=== PATIENT | female | born 1945 | race Caucasian/White ===

== ENCOUNTER 2019-05-17 | Emergency (ER) | payer MEDICARE ==
[~2019-05-17] MED LIST: PROTONIX40 M2 PO; TRAMADOL HCL50 MG PO
[2019-05-17 21:45] LABS: HEMATOCRIT 49.3 % (37.0-47.0); HEMOGLOBIN 16.3 g/dl (12.0-16.0); IMMATURE GRANULOCYTES 0.2 % (0.0-5.0); MEAN CELL VOLUME 91.1 fL CALC (80.0-100.0); MEAN CORPUSCULAR HGB 30.1 pG CALC (26.0-32.0); MEAN CORPUSCULAR HGB CONC 33.1 g/L CALC (32.0-36.0); NEUT# 10.3 thou/uL (2.00-7.15); RED BLOOD COUNT 5.41 mill/uL (4.20-5.60); RED CELL DISTRI WIDTH 15.1 % (11.5-15.5)
[2019-05-17 22:01] LABS: ANION GAP 16 (6-22 (CALC)); BILIRUBIN, TOTAL 0.7 mg/dL (0.0-1.4); BUN 20 mg/dL (8-23); BUN/CREATININE RATIO 39 (12-20 (CALC)); CARBON DIOXIDE 24 mmol/l (22-30); CHLORIDE 99 mmol/l (95-108); CREATININE 0.5 mg/dL (0.5-1.0); GFR > 60 ML/MIN (>=60 (CALC)); GFR FOR AFR.AMER. > 60 ML/MIN (>=60 (CALC)); SODIUM 135 mmol/l (137-146)
[2019-05-17 22:04] LABS: ACT PARTIAL THROMBO TIME 27.2 SECONDS (20.0-32.5)
[2019-05-17 22:12] LABS: ALBUMIN 4.8 g/dL (3.2-5.0); ALKALINE PHOSPHATASE 95 u/l (38-126); SGOT/AST 48 u/l (9-36); TOTAL PROTEIN 9.1 g/dL (6.3-8.2)
[2019-05-18 01:54] LABS: URINE BILIRUBIN - DIPSTICK NEGATIVE (NEGATIVE); URINE BLOOD DIPSTICK TRACE-LYSED (NEGATIVE); URINE COLOR YELLOW; URINE GLUCOSE - DIPSTICK NEGATIVE (NEGATIVE); URINE KETONE 15 mg/dL (NEGATIVE); URINE PROTEIN - DIPSTICK 30 mg/dL (NEG-TRACE); URINE SPECIFIC GRAVITY 1.025; URINE UROBILINOGEN - DIPSTICK 0.2 E.U./dL (0.2)
[2019-05-18 02:04] LABS: URINE LEUK ESTERASE SMALL (NEGATIVE)
[2019-05-18 02:05] LABS: URINE NITRITE - DIPSTICK NEGATIVE (Negative)
[2019-05-18 02:06] LABS: URINE BACTERIA MODERATE hpf; URINE EPITHELIAL CELLS FEW EPI/hpf (0-FEW)
== END 2019-05-18 01:19 | disposition short-term general hospital (02) ==
PROVIDERS: Emergency Medicine
DX: I21.4 Non-ST elevation (NSTEMI) myocardial infarction (principal); R51 Headache; F17.210 Nicotine dependence, cigarettes, uncomplicated; R82.71 Bacteriuria
CPT/HCPCS: J1650

== ENCOUNTER 2020-07-02 12:59 | Observation (INO) | payer MEDICARE ==
[~2020-07-02] VITALS: Ht 160 cm; Wt 53.0 kg
--- NOTE | 2020-07-02 12:59 | NUR ---
TO ROOM VIA EMS IN STABLE CONDITION
[2020-07-02] MEDS ORDERED: ASPIRIN325 MG PO (13:19)
[2020-07-02] MEDS ORDERED: CLOPIDOGREL75 MG PO (13:20)
[2020-07-02] MEDS ORDERED: [UNRECOGNIZED DRUG - CODE] PO (13:21)
[2020-07-02] MEDS ORDERED: MEMANTINE HYDRO10 MG PO (13:23)
[2020-07-02] MEDS ORDERED: ROSUVASTATIN CA40 MG PO (13:25)
[2020-07-02] MEDS ORDERED: DOK100 MG PO (13:26)
--- NOTE | 2020-07-02 13:30 | NUR ---
EMS STATES THAT PT WAS AT AN [facility] SITTING ON A SHOWER CHAIR IN THE SHOWER WHEN SHE FELL BACK WHEN THE CHAIR BROKE. PT HAS A HEMATOMA ON THE BACK OF THE HEAD MEASURING 4-6 CM. PT AOX4. PT HAS EARLY DEMENTIA AND CANNOT RECALL MANY THINGS. SHE IS ON BLOOD THINNERS. PT DENIES ANY PAIN AT THIS TIME. PLAN OF CARE DISCUSSED TO DAUGHTER AND PT.
[2020-07-02 13:36] LABS: IMMATURE GRANULOCYTES 0.8 % (0.0-5.0); MEAN CORPUSCULAR HGB 30.8 pG CALC (26.0-32.0); MEAN CORPUSCULAR HGB CONC 30.9 g/dL CAL (32.0-36.0); NEUT# 6.33 thou/uL (2.00-7.15); RED BLOOD COUNT 4.32 mill/uL (4.20-5.60); RED CELL DISTRI WIDTH 12.7 % (11.5-15.5)
[2020-07-02 13:37] LABS: HEMATOCRIT 43.1 % (37.0-47.0); HEMOGLOBIN 13.3 g/dl (12.0-16.0); MEAN CELL VOLUME 99.8 fL CALC (80.0-100.0)
[2020-07-02 13:53] LABS: ALBUMIN 4.2 g/dL (3.2-5.0); ALKALINE PHOSPHATASE 81 u/l (38-126); ANION GAP 10 (6-22 (CALC)); BILIRUBIN, TOTAL 0.5 mg/dL (0.0-1.4); BUN 19 mg/dL (8-23); BUN/CREATININE RATIO 24 (12-20 (CALC)); CARBON DIOXIDE 28 mmol/l (22-30); CHLORIDE 105 mmol/l (95-108); CREATININE 0.8 mg/dL (0.5-1.0); GFR > 60 ML/MIN (>=60 (CALC)); GFR FOR AFR.AMER. > 60 ML/MIN (>=60 (CALC)); POTASSIUM 4.4 mmol/l (3.5-5.1); SGOT/AST 69 u/l (9-36); SODIUM 138 mmol/l (137-146); TOTAL PROTEIN 7.5 g/dL (6.3-8.2)
[2020-07-02 13:56] LABS: ACT PARTIAL THROMBO TIME 25.2 SECONDS (20.0-32.5); PROTHROMBIN TIME 10.2 SECONDS (9.0-12.5)
--- NOTE | 2020-07-02 14:41 | NUR ---
SBAR PRINTED TO FLOOR
[2020-07-02 14:56] LABS: URINE BILIRUBIN - DIPSTICK NEGATIVE (NEGATIVE); URINE BLOOD DIPSTICK NEGATIVE (NEGATIVE); URINE COLOR YELLOW; URINE GLUCOSE - DIPSTICK NEGATIVE (NEGATIVE); URINE KETONE NEGATIVE (NEGATIVE); URINE LEUK ESTERASE TRACE (NEGATIVE); URINE PH 5.5 (4.5-8.0); URINE PROTEIN - DIPSTICK NEGATIVE (NEG-TRACE); URINE UROBILINOGEN - DIPSTICK 0.2 E.U./dL (0.2)
[2020-07-02 15:00] LABS: URINE NITRITE - DIPSTICK NEGATIVE (Negative)
--- NOTE | 2020-07-02 15:26 | NUR ---
GAVE REPORT TO STEPHENIE
--- NOTE | 2020-07-02 15:33 | NUR ---
Admission Note Report Given to: SBAR PRINTED TO FLOOR Transported by: Wheelchair X Stretcher Transported with: X Nurse Transporter X Patent IV O2 X Senior Enlisted Advisor Location: ICU X MS2
[2020-07-02 15:40] VITALS: BP 154/100
--- NOTE | 2020-07-02 15:40 | NUR ---
PATIENT RECEIVED FROM ED AT THIS TIME. PATIENT ALERT AND ORIENTED TO NAME, , PLACE. PATIENT ORIENTED TO ROOM AND SURROUNDINGS. PATIENT VERBALIZES UNDERSTANDING AT THIS TIME. AUTOMOTIVE MECHANICAL ENGINEER DONE (SEE INTERVENTIONS). PATIENT PUPILS PERRL AND REACTIVE TO LIGHT BRISKLY< 3 S3C. PATIENTS GRASPS ARE EQUAL AND WITHOUT DEFICITS. PATIENT STATED SHE HAD A STROKE IN 2020 AND NO RESISUAL EFFECTS NOTED AT THIS TIME. PATIENT LUNG BRANTLEY ARE CLEAR AT THIS TIME. BOWEL SOUNDS PRESENT IN ALL FOUR QUADRANTS AND PATIENT STATED SHE HAD A BOWEL MOVEMENT ON 07/01/20 AND IT WAS "NORMAL". PATIENT DOES PRESENT WITH HEMATOMA TO THE CROWN OF HER HEAD AND BRUISING NOTED WITHOUT OPENING. PATIENT HAS ICE PACK TO HEAD AT THIS TIME. NO EDEMA NOTED ON ANY EXTREMITIES AND RESPIRATIONS EASY AND UNLABORED. CALL LIGHT AND PERSONAL ITEMS WITHIN REACH SIDERAILS ARE UP X2 AND TELE MONITOR IN PLACE AND BEING WATCHED BY ED.
--- NOTE | 2020-07-02 19:10 | NUR ---
PT ASSESSED AT THIS. PT REPORTS FEELING OKAY AT THIS TIME. SHE IS SITTING UP WATCHING TV. NO S/O DISTRESS NOTED AT THIS TIME. CALL LIGHT W/IN REACH AND REORIENTED TO PT, VERBALIZED UNDERSTANDING. BED ALARM IS ON.
[2020-07-02 19:45] VITALS: BP 110/68
[2020-07-03] VITALS: BP 102/63
--- NOTE | 2020-07-03 00:58 | NUR ---
PT IS SLEEPING AT THIS TIME WITH LIGHTS LOW AND TV ON. NO S/O DISTRESS NOTED.
[2020-07-03 04:00] VITALS: BP 113/68
--- NOTE | 2020-07-03 04:36 | NUR ---
PT AWAKE, BUT CONFUSED TO TIME OF DAY. V/S ASSESSED. DENIES PAIN, BUT REPORTS THE BACK OF HER HEAD IS TENDER TO THE TOUCH. NEURO'S ARE INTACT.
[2020-07-03 07:05] VITALS: BP 110/68
--- NOTE | 2020-07-03 07:05 | NUR ---
PATIENT RESTING IN BED AT THIS TIME. ALERT AND ORIENTED X 2. WALL WORKER DONE AT THIS TIME. NEURO CHECKS DONE AND GRASPS ARE STRONG AND EQUAL, PUPILS REACTIVE BRISK AND PERRL. CROWN OF HEAD REMAINS BRUISED AND AREA SLIGHTLY RAISED. PATIENT DENIES ANY PAIN AT THIS TIME. SIDERAILS ARE UP CALL LIGHT AND PERSONAL ITEMS ARE WITHIN REACH.
[2020-07-03 10:51] VITALS: BP 79/50
--- NOTE | 2020-07-03 12:00 | NUR ---
PATIENT BEING D/C AT THIS TIME. PATIENT DENEIS ANY NEEDS SIDERAILS ARE UP NEURO CHECKS REMAIN UNCHANGED AT THIS TIME. CALL LIGHT IS WITHIN REACH.
[2020-07-03 12:38] LABS: HEMATOCRIT 40.9 % (37.0-47.0); HEMOGLOBIN 12.7 g/dl (12.0-16.0)
--- NOTE | 2020-07-03 13:53 | NUR ---
PATIENT D/C AT THIS TIME PATIENT DAUGHTER AND PATIENT VERBALIZES UNDERSTANDING OF D/C INSTRUCTIONS AT THIS TIME. IV REMOVED AND TELE REMOVED AND ED NOTIFIED OF TELE REMOVAL.
--- NOTE | 2020-07-03 14:11 | NUR ---
Discharge instructions given. Patient verbalizes understanding of same. Discharged in stable condition via Wheelchair to [facility] with family. All belongings sent with pt.
== END 2020-07-03 14:11 ==
LOC: ED 12:59 → ED-I 14:28 → ED 14:51 → MS2 14:52
PROVIDERS: Nurse Practitioner Family; ADMIT Internal Medicine; ATTEND Internal Medicine
DX: S06.0X0A Concussion without loss of consciousness, initial encounter (principal); S00.03XA Contusion of scalp, initial encounter; I95.9 Hypotension, unspecified; I10 Essential (primary) hypertension; G40.909 Epilepsy, unspecified, not intractable, without status epilepticus; F03.90 Unspecified dementia, unspecified severity, without behavioral disturbance, psychotic disturbance, mood disturbance, and anxiety; W17.89XA Other fall from one level to another, initial encounter; Y93.E1 Activity, personal bathing and showering; Y92.091 Bathroom in other non-institutional residence as the place of occurrence of the external cause; Z86.73 Personal history of transient ischemic attack (TIA), and cerebral infarction without residual deficits; Z79.82 Long term (current) use of aspirin; Z79.02 Long term (current) use of antithrombotics/antiplatelets; Z20.822 Contact with and (suspected) exposure to COVID-19
CPT/HCPCS: J1650

== ENCOUNTER 2021-08-29 23:54 | Emergency (ER) | payer MEDICARE ==
[~2021-08-29] VITALS: Ht 160 cm; Wt 72.0 kg
[~2021-08-29 23:54] MED LIST changes: +ASPIRIN325 MG PO; +CLOPIDOGREL75 MG PO; +DOK100 MG PO; +MEMANTINE HYDRO10 MG PO; +ROSUVASTATIN CA40 MG PO; +[UNRECOGNIZED DRUG - CODE] PO
[2021-08-30] VITALS (9 sets, daily range): BP systolic 103–128; BP diastolic 56–96
[2021-08-30 00:34] LABS: HEMATOCRIT 42.1 % (37.0-47.0); HEMOGLOBIN 13.4 g/dl (12.0-16.0); IMMATURE GRANULOCYTES 0.4 % (0.0-5.0); MEAN CELL VOLUME 95.7 fL CALC (80.0-100.0); MEAN CORPUSCULAR HGB 30.5 pG CALC (26.0-32.0); MEAN CORPUSCULAR HGB CONC 31.8 g/dL CAL (32.0-36.0); NEUT# 2.34 thou/uL (2.00-7.15); RED BLOOD COUNT 4.4 mill/uL (4.20-5.60); RED CELL DISTRI WIDTH 13.5 % (11.5-15.5)
[2021-08-30 00:48] LABS: ALBUMIN 3.9 g/dL (3.2-5.0); BILIRUBIN, TOTAL 0.4 mg/dL (0.0-1.4); CREATININE 1.3 mg/dL (0.5-1.0); POTASSIUM 3.6 mmol/l (3.5-5.1); TOTAL PROTEIN 6.9 g/dL (6.3-8.2)
[2021-08-30 01:27] LABS: URINE BILIRUBIN - DIPSTICK NEGATIVE (NEGATIVE); URINE BLOOD DIPSTICK MODERATE (NEGATIVE); URINE COLOR YELLOW; URINE GLUCOSE - DIPSTICK NEGATIVE (NEGATIVE); URINE KETONE NEGATIVE (NEGATIVE); URINE LEUK ESTERASE TRACE (NEGATIVE); URINE PROTEIN - DIPSTICK TRACE mg/dL (NEG-TRACE); URINE SPECIFIC GRAVITY >=1.030; URINE UROBILINOGEN - DIPSTICK 0.2 E.U./dL (0.2)
[2021-08-30 01:29] LABS: URINE NITRITE - DIPSTICK POSITIVE (Negative)
[2021-08-30 01:41] LABS: URINE BACTERIA FEW hpf; URINE MUCUS FEW hpf (NONE-FEW); URINE SQUAMOUS EPITHELIAL CELL MANY EPI/hpf (0-FEW); URINE WBC 20-50 WBC/hpf (0-5)
[2021-08-30] MEDS ORDERED: BACTRIM DS1 TAB PO (02:01)
== END 2021-08-30 02:16 | disposition home or self-care (01) ==
LOC: ED 23:54
PROVIDERS: Family Medicine
DX: N39.0 Urinary tract infection, site not specified (principal); U07.1 COVID-19; I10 Essential (primary) hypertension; G40.909 Epilepsy, unspecified, not intractable, without status epilepticus; F03.90 Unspecified dementia, unspecified severity, without behavioral disturbance, psychotic disturbance, mood disturbance, and anxiety; Z86.73 Personal history of transient ischemic attack (TIA), and cerebral infarction without residual deficits; B96.20 Unspecified Escherichia coli [E. coli] as the cause of diseases classified elsewhere

== ENCOUNTER 2021-10-05 06:50 | Observation (INO) | payer MEDICARE ==
[~2021-10-05] VITALS: Ht 160 cm; Wt 57.0 kg
[2021-10-05] VITALS (9 sets, daily range): BP systolic 90–132; BP diastolic 50–82
[~2021-10-05 06:50] MED LIST changes: +BACTRIM DS1 TAB PO; +DONEPEZIL10 MG PO; -[UNRECOGNIZED DRUG - CODE] PO
--- NOTE | 2021-10-05 06:50 | NUR ---
PT TO ROOM 10 VIA EMS
--- NOTE | 2021-10-05 06:53 | NUR ---
STROKE ALERT CALLED
--- NOTE | 2021-10-05 06:54 | NUR ---
PT TAKEN TO CT SCAN.
--- NOTE | 2021-10-05 07:06 | NUR ---
PATIENT ARRIVED VIA EMS. STROKE ALERT INITIATED AND PATIENT TAKEN DIRECTLY TO CT WITH RN AND TELENEURO ON CONSULT.
[2021-10-05 07:20] LABS: GFR FOR AFR.AMER. > 60 ML/MIN (>=60 (CALC)); GFR OTHER RACES > 60 ML/MIN (>=60 (CALC))
[2021-10-05 07:23] LABS: HEMATOCRIT 40.6 % (37.0-47.0); HEMOGLOBIN 12.2 g/dl (12.0-16.0); IMMATURE GRANULOCYTES 0.4 % (0.0-5.0); MEAN CELL VOLUME 100.2 fL CALC (80.0-100.0); MEAN CORPUSCULAR HGB 30.1 pG CALC (26.0-32.0); NEUT# 4.79 thou/uL (2.00-7.15); RED BLOOD COUNT 4.05 mill/uL (4.20-5.60); RED CELL DISTRI WIDTH 13.9 % (11.5-15.5)
[2021-10-05 07:38] LABS: CHLORIDE 111 mmol/l (95-108); CREATININE 0.9 mg/dL (0.5-1.0); GFR FOR AFR.AMER. > 60 ML/MIN (>=60 (CALC)); GFR OTHER RACES > 60 ML/MIN (>=60 (CALC)); SODIUM 140 mmol/l (137-146)
[2021-10-05 07:39] LABS: ALBUMIN 3.4 g/dL (3.2-5.0); ALKALINE PHOSPHATASE 87 u/l (38-126); BILIRUBIN, TOTAL 0.4 mg/dL (0.0-1.4); SGOT/AST 33 u/l (9-36); TOTAL PROTEIN 6.6 g/dL (6.3-8.2)
[2021-10-05 07:40] LABS: ANION GAP 12 (6-22 (CALC)); BUN 14 mg/dL (8-23); BUN/CREATININE RATIO 16 (12-20 (CALC)); CARBON DIOXIDE 22 mmol/l (22-30); POTASSIUM 4.6 mmol/l (3.5-5.1)
[2021-10-05] MEDS ORDERED: PEG 3350 PO (07:58)
[2021-10-05] MEDS ORDERED: METAMUCIL28.3 % PO (07:58)
[2021-10-05] MEDS ORDERED: BAYER ASPIRIN E81 MG PO (07:59)
[2021-10-05] MEDS ORDERED: BUPROPION150 M3 PO (07:59)
[2021-10-05] MEDS ORDERED: ACETAMINOPHEN650 M1 (08:00)
[2021-10-05] MEDS ORDERED: SENNA/DSS1 TAB PO (08:01)
--- NOTE | 2021-10-05 08:01 | NUR ---
PT WAS STROKE ALERTED, PT WAS TRANSPORTED TO CT, CT SCAN COMPLETED, TELENEURO CONSULTED, SECOND [facility] WAS ZERO CONDUCTED BY NEUROLOGIST, PT NOW BACK IN ROOM ON MONITOR WITH FAMILY AT BEDSIDE.
--- NOTE | 2021-10-05 08:03 | NUR ---
REPORT GIVEN TO MARK GRIMES.
--- NOTE | 2021-10-05 08:04 | NUR ---
REPORT GIVEN TO PHIL GRIMES.
[2021-10-05 08:45] LABS: URINE BILIRUBIN - DIPSTICK NEGATIVE (NEGATIVE); URINE BLOOD DIPSTICK NEGATIVE (NEGATIVE); URINE COLOR YELLOW; URINE GLUCOSE - DIPSTICK NEGATIVE (NEGATIVE); URINE KETONE NEGATIVE (NEGATIVE); URINE LEUK ESTERASE NEGATIVE (NEGATIVE); URINE PROTEIN - DIPSTICK NEGATIVE (NEG-TRACE); URINE SPECIFIC GRAVITY <=1.005; URINE UROBILINOGEN - DIPSTICK 0.2 E.U./dL (0.2)
[2021-10-05 08:46] LABS: URINE NITRITE - DIPSTICK NEGATIVE (Negative)
--- NOTE | 2021-10-05 08:58 | NUR ---
PATIENT EATING BREAKFAST.
[2021-10-05 09:52] LABS: C-REACTIVE PROTEIN 1.1 mg/dL (0-0.9); CHOLESTEROL HDL RATIO 2.3 (<4.4 (CALC)); MAGNESIUM 1.9 mg/dL (1.6-2.3)
--- NOTE | 2021-10-05 12:00 | NUR ---
PATEINT ARRIVED TO FLOOR FROM ER TO ROOM 279 AT 1030, VITALS STABLE, NO SIGNS OR SYMPTOMS OF DISTRESS NOTED OR VOICED, ADMISSION ASSESSMENT COMPLETED AND DOCUMENTED.
[2021-10-05] MEDS ORDERED: [UNRECOGNIZED DRUG - CODE] PO (15:50)
[2021-10-05] MEDS ORDERED: B121000 MC1 PO (15:51)
[2021-10-05] MEDS ORDERED: COQ-10100 M1 PO (15:52)
--- NOTE | 2021-10-05 16:00 | NUR ---
RESTING IN BED WITH EYES CLOSED.
--- NOTE | 2021-10-05 19:19 | NUR ---
REPORT RECEIVED FROM Flower BROOKS LPN
--- NOTE | 2021-10-05 21:45 | NUR ---
MEDICATIONS ADMINISTERED AT THIS TIME PER MAR, SEE MAR.
[2021-10-06 00:19] VITALS: BP 141/66
--- NOTE | 2021-10-06 00:30 | NUR ---
PATIENT RESTING COMFORTBALY. [facility] 0. PATIENT EXPRESES CONCER OVER WHICH MD WILL SEE HER THIS AM. PATIENT ADVISED THAT ALL THE DOCTRS ARE IN THE SAME GROUP AND THAT SHE IS IN GOOD HANDS.
[2021-10-06 04:10] VITALS: BP 116/64
--- NOTE | 2021-10-06 04:20 | NUR ---
PATIENT UP TO THE RESRROOM AT THIS TIME. CALL LIGHT AND BEDSIDE TABLE WITHN REACH. [facility] REMAINS 0. BATHROOM CALL LIGHT AHANDED TO PATIENT AND INSTRCUTED TO CALL.
[2021-10-06 05:35] LABS: HEMATOCRIT 40.4 % (37.0-47.0); HEMOGLOBIN 12.5 g/dl (12.0-16.0); IMMATURE GRANULOCYTES 0.2 % (0.0-5.0); MEAN CELL VOLUME 97.8 fL CALC (80.0-100.0); MEAN CORPUSCULAR HGB 30.3 pG CALC (26.0-32.0); MEAN CORPUSCULAR HGB CONC 30.9 g/dL CAL (32.0-36.0); NEUT# 4.71 thou/uL (2.00-7.15); RED BLOOD COUNT 4.13 mill/uL (4.20-5.60)
[2021-10-06 06:04] LABS: ANION GAP 9 (6-22 (CALC)); BUN 16 mg/dL (8-23); BUN/CREATININE RATIO 18 (12-20 (CALC)); CARBON DIOXIDE 23 mmol/l (22-30); CHLORIDE 111 mmol/l (95-108); CREATININE 0.9 mg/dL (0.5-1.0); GFR FOR AFR.AMER. > 60 ML/MIN (>=60 (CALC)); GFR OTHER RACES > 60 ML/MIN (>=60 (CALC)); MAGNESIUM 2.1 mg/dL (1.6-2.3); POTASSIUM 4.3 mmol/l (3.5-5.1); SODIUM 139 mmol/l (137-146)
[2021-10-06 07:47] VITALS: BP 117/50
[2021-10-06 10:52] VITALS: BP 117/49
--- NOTE | 2021-10-06 12:43 | NUR ---
SITTING UP IN RECLINER HAVING MEAL, NO NEW COMPLAIN, DAUGHTER IN ROOM AND HAS MANY QUESTIONS, NURSE ANSWERED MANY WERE WITHIN SCOPE TO ADDRESS AND ADVISE TO HAVE MD ADDRESS UNANSWERED ONES.
[2021-10-06 15:15] VITALS: BP 96/58
--- NOTE | 2021-10-06 18:24 | NUR ---
Discharge instructions given. Patient verbalizes understanding of same. Discharged in good condition via Wheelchair to Home with family. All belongings sent with pt.
== END 2021-10-06 18:24 | disposition home health service (06) ==
LOC: ED 06:50 → ED-I 08:55 → ED 09:12 → MS2 09:13
PROVIDERS: Family Medicine; ADMIT Internal Medicine; ATTEND Internal Medicine
DX: R53.1 Weakness (principal); R47.81 Slurred speech; I95.89 Other hypotension; I65.21 Occlusion and stenosis of right carotid artery; I10 Essential (primary) hypertension; F03.90 Unspecified dementia, unspecified severity, without behavioral disturbance, psychotic disturbance, mood disturbance, and anxiety; E78.5 Hyperlipidemia, unspecified; G40.909 Epilepsy, unspecified, not intractable, without status epilepticus; Z86.73 Personal history of transient ischemic attack (TIA), and cerebral infarction without residual deficits; Z20.822 Contact with and (suspected) exposure to COVID-19
CPT/HCPCS: Q3014; Q9967